=== PATIENT | female | born 1950 | race Caucasian/White ===

== ENCOUNTER → 2016-08-17 | Outpatient (CLI) | payer MEDICARE, OTHER ==
[~2016-08-17] MED LIST: AMLOPIDINE PO; AMOXICILLIN/CLA1 TA1 PO; ASPIRIN 32325 MG/TAB PO; ASPIRIN E.C. 8181 MG PO; CALTRATE-600 W600 MG PO; COLACE 100100 MG/CAP PO; COREG 6.256.25 MG/TA PO; COREG CR10 MG PO; COREG CR20 M1 PO; EPA FISH OIL1000 MG PO; EPO; FOLIC ACID 11 MG/TA1 PO; FOLIC ACID0.4 MG PO; HCTZ 25MG25 MG PO; HYDRALAZINE HCL25 MG PO; IMDUR 60MG60 MG/TAB PO; INSULIN HUMA100 U/ML SC; INSULIN NOVO100 U/ML SC; IPRATROPIUM BROM3 M1 IH; LANTUS100 U/ML SQ; LEVAQUIN 5500 MG/TA1 PO; LIDODERM PATCH TP; Lantus Insulin SC; MICARDIS80 MG PO; MULTIPLE VITAMI1 TA2 PO; NEPHROCAP PO; NEURONTIN300 MG PO; NITROSTAT0.4 MG/TAB SL; NORCO 325 MG-51 TAB PO; NORCO 325 MG-7.1 TAB PO; NORVASC 10MG10 MG PO; NORVASC5 MG PO; NOVOLIN 70/30 IN3 ML SC; NOVOLOG FLEX100 U/ML SC; NOVOLOG SQ; NOVOLOG100 U/ML SC; PERCOCET 325 MG1 TA2 PO; PHOSLO667 M1 PO; PHOSLO667 MG PO; PLAVIX 75MG TAB75 MG PO; PRAVACHOL 40MG40 MG PO; PRAVACHOL40 MG PO; PYRIDIUM 100MG100 MG PO; REGLAN 5MG5 MG PO; RENA-VITE1 TAB PO; RENO CAPS1 SGL PO; RENVELA800 MG PO; SENSIPAR30 MG PO; SODIUM BICARB PO; SODIUM BICARBO650 MG PO; SYNTHROID0.112 MG/T PO; SYNTHROID0.125 MG PO; SYNTHROID0.125 MG/T PO; TEKTURNA PO; TRENTAL 400MG400 MG PO; TRENTAL PO; TYLENOL 325MG325 MG PO; ULTRAM50 MG PO; VIT C PO; VIT E PO; ZANTAC 150MG T150 MG PO; ZANTAC 300300 MG PO; ZANTAC 7575 MG PO; ZEMPLAR1 MCG PO; ZETIA10 MG PO; ZOCOR40 MG PO; [UNRECOGNIZED DRUG - OTHER]; [UNRECOGNIZED DRUG - OTHER] PO
== END ==
LOC: COL.RAD 11:00
DX: I70.291 Other atherosclerosis of native arteries of extremities, right leg (principal); I77.1 Stricture of artery; I73.89 Other specified peripheral vascular diseases; Z89.512 Acquired absence of left leg below knee; Z89.511 Acquired absence of right leg below knee; Z90.5 Acquired absence of kidney
CPT/HCPCS: Q9967

== ENCOUNTER 2016-09-17 09:54 | Inpatient (IN) | payer MEDICARE, OTHER ==
[~2016-09-17] VITALS: Ht 160 cm; Wt 84.7 kg
[~2016-09-17 09:54] MED LIST changes: -NORCO 325 MG-7.1 TAB PO; -ZANTAC 7575 MG PO
[2016-09-17 14:05] LABS: ADD PATHOLOGY DIFF REVIEW NO
[2016-09-17 14:10] LABS: MEAN CELL VOLUME 97 fl (80.0-100.0); MEAN CORPUSCULAR HGB CONC 32 g/dl (33.0-37.0); MEAN PLATELET VOLUME 11.1 fl (7.4-10.4); PLATELET COUNT 173 K/mm3 (130-400); RED BLOOD COUNT 3.18 M/mm3 (4.10-5.30); REDCELL DISTRIBUTION WIDTH-CV 12.8 % (11.5-14.5); WHITE BLOOD COUNT 5.9 K/mm3 (4.8-10.8)
[2016-09-17 14:34] LABS: ADJUSTED CALCIUM 9.4 mg/dL (8.4-10.2); ALANINE AMINOTRANSFERASE 19 U/L (9-52); ALBUMIN 3.8 gm/dL (3.5-5.0); ALKALINE PHOSPHATASE 68 U/L (50-136); ANION GAP 14 mmol/L (7-16); BILIRUBIN,TOTAL 0.6 mg/dL (0.0-1.0); BLOOD UREA NITROGEN 24 mg/dL (7-17); CALCIUM 9.2 mg/dL (8.4-10.2); CARBON DIOXIDE 27 mmol/L (22-30); CHLORIDE 101 mmol/L (98-107); CREATINE KINASE 26 U/L (30-135); GLUCOSE 167 mg/dL (74-106); SODIUM 141 mmol/L (137-145)
[2016-09-17 14:44] LABS: CREATININE, serum 4.85 mg/dL (0.52-1.25)
[2016-09-17 14:46] LABS: B-TYPE NATRIURETIC PEPTIDE 8370 pg/mL (0-125)
[2016-09-17 14:50] LABS: TROPONIN-I < 0.012 ng/mL (0.000-0.034)
[2016-09-17 14:55] LABS: HEMATOCRIT 30.7 % (37.0-47.0); HEMOGLOBIN 9.9 g/dl (12.5-16.0); MEAN CORPUSCULAR HEMOGLOBIN 31 pg (27.0-31.0)
[2016-09-17 15:29] VITALS: BP 138/75; PULSE 70; TEMP 98.1
[2016-09-17 16:27] LABS: BAND 7 % (0-10); EOSINOPHIL 5 % (0-4); METAMYELOCYTE 1 % (0-0)
[2016-09-17 16:31] LABS: MYELOCYTE 0 % (0-0); NEUTROPHILS 62 % (42.0-75.2); TOTAL CELLS COUNTED 100
[2016-09-17 16:32] LABS: PLATELET ESTIMATE NORMAL (NORMAL)
[2016-09-17 19:12] VITALS: BP 145/60; PULSE 77; TEMP 98
[2016-09-17 23:09] VITALS: BP 132/44; PULSE 77; TEMP 98.5
[2016-09-18 05:07] VITALS: BP 132/48; PULSE 64; TEMP 98.3
[2016-09-18 11:51] VITALS: BP 125/49; PULSE 70; TEMP 98.4
== END 2016-09-18 16:03 | disposition home or self-care (01) | DRG 311 ==
LOC: MEDICAL 09:54
PROVIDERS: Internal Medicine Nephrology
PROC: 5A1D00Z (ICD-10-PCS; principal; 2016-09-18)
DX: I20.9 Angina pectoris, unspecified (principal); N18.6 End stage renal disease; I12.0 Hypertensive chronic kidney disease with stage 5 chronic kidney disease or end stage renal disease; E11.22 Type 2 diabetes mellitus with diabetic chronic kidney disease; E03.9 Hypothyroidism, unspecified; D63.1 Anemia in chronic kidney disease; I95.9 Hypotension, unspecified; Z99.2 Dependence on renal dialysis; Z79.4 Long term (current) use of insulin
CPT/HCPCS: J0882; J1644; J1815

== ENCOUNTER 2017-01-23 11:21 | Emergency (ER) | payer MEDICARE, OTHER ==
[~2017-01-23] VITALS: Ht 160 cm; Wt 77.3 kg
[2017-01-23 11:25] VITALS: TEMP 98.7
[2017-01-23] MEDS ORDERED: AMOXICILLIN/CLA1 TA1 PO (11:45)
[2017-01-23] MEDS ORDERED: NORCO 325 MG-7.1 TAB PO (11:46)
[2017-01-23] MEDS ORDERED: ZANTAC 7575 MG PO (11:50)
[2017-01-23 12:57] LABS: BASO % 0.4 % (0.0-2.0); EOS # 0.3 (0.0-0.7); EOS % 2.7 % (0-4.0); GRAN # 7.5 (1.4-6.5); GRAN % 76.7 % (42.2-75.2); LYMPH # 1.2 (1.2-3.4); LYMPH % 12.3 % (20.0-51.0); MEAN CELL VOLUME 100 fl (80.0-100.0); MEAN CORPUSCULAR HGB CONC 31 g/dl (33.0-37.0); MEAN PLATELET VOLUME 10.9 fl (7.4-10.4); MONO # 0.7 (0.1-0.6); MONO % 7.4 % (1.7-9.3); PLATELET COUNT 205 K/mm3 (130-400); RED BLOOD COUNT 3.33 M/mm3 (4.10-5.30); REDCELL DISTRIBUTION WIDTH-CV 13.3 % (11.5-14.5); WHITE BLOOD COUNT 9.8 K/mm3 (4.8-10.8)
[2017-01-23 13:08] LABS: HEMATOCRIT 33.2 % (37.0-47.0); HEMOGLOBIN 10.4 g/dl (12.5-16.0); MEAN CORPUSCULAR HEMOGLOBIN 31 pg (27.0-31.0)
[2017-01-23 13:09] LABS: ALBUMIN 3.6 gm/dL (3.5-5.0); BILIRUBIN,TOTAL 0.7 mg/dL (0.0-1.0); C-REACTIVE PROTEIN 8.1 mg/dL (0.0-0.9); CALCIUM 8.7 mg/dL (8.4-10.2); POTASSIUM 4.3 mmol/L (3.4-5.0); TOTAL PROTEIN 7.2 gm/dL (6.4-8.2)
[2017-01-23 13:11] LABS: CREATININE, serum 7.03 mg/dL (0.52-1.25)
[2017-01-23 13:30] VITALS: BP 120/51; PULSE 51
== END 2017-01-23 13:30 | disposition home or self-care (01) ==
LOC: COL.ER 11:21
PROVIDERS: Family Medicine
DX: I73.1 Thromboangiitis obliterans [Buerger's disease] (principal); N18.6 End stage renal disease; Z99.2 Dependence on renal dialysis; Z79.82 Long term (current) use of aspirin; Z79.02 Long term (current) use of antithrombotics/antiplatelets

== ENCOUNTER 2017-03-08 09:30 | Day surgery (SDC) | payer MEDICARE, OTHER ==
[~2017-03-08] VITALS: Ht 160 cm; Wt 81.8 kg
[~2017-03-08 09:30] MED LIST changes: +NORCO 325 MG-7.1 TAB PO; +ZANTAC 7575 MG PO
[2017-03-08 10:21] VITALS: BP 144/49; PULSE 67; TEMP 97.5
[2017-03-08 10:36] LABS: CALCIUM 9.1 mg/dL (8.4-10.2); POTASSIUM 4.6 mmol/L (3.4-5.0)
[2017-03-08 10:40] LABS: CREATININE, serum 6.21 mg/dL (0.52-1.25)
[2017-03-08] MEDS ORDERED: COREG 6.256.25 MG/TA PO (10:44)
[2017-03-08] MEDS ORDERED: IMDUR 30MG30 MG/TAB PO (10:45)
[2017-03-08] MEDS ORDERED: TRENTAL 400MG400 MG PO (10:45)
[2017-03-08] MEDS ORDERED: NEURONTIN300 MG/CAP PO (10:46)
[2017-03-08] MEDS ORDERED: TIROSINT125 MC1 PO (10:47)
[2017-03-08] MEDS ORDERED: PLAVIX 75MG TAB75 MG PO (10:48)
[2017-03-08] MEDS ORDERED: ZANTAC 150MG T150 MG PO (10:48)
[2017-03-08] MEDS ORDERED: PRAVACHOL 40MG40 MG PO (10:49)
[2017-03-08] MEDS ORDERED: FOLIC ACID 11 MG/TA1 PO (10:49)
[2017-03-08] MEDS ORDERED: NEPHROCAP PO (10:50)
[2017-03-08] MEDS ORDERED: NOVOLOG 100U100 U/M1 SQ (10:51)
[2017-03-08] MEDS ORDERED: LANTUS100 U/ML SQ (10:52)
[2017-03-08] MEDS ORDERED: ASPIRIN 32325 MG/TAB PO (10:52)
[2017-03-08 13:51] VITALS: BP 112/35; PULSE 75
[2017-03-08 14:06] VITALS: BP 92/62; PULSE 69
[2017-03-08] MEDS ORDERED: PHENERGAN 25 TA25 MG PO ×2 (14:13→14:19)
[2017-03-08] MEDS ORDERED: NORCO 325 MG-7.1 TAB PO (14:18)
[2017-03-08 14:21] VITALS: BP 101/44; PULSE 58
== END 2017-03-08 14:43 | disposition home or self-care (01) ==
LOC: SDCO 09:30
PROVIDERS: Registered Nurse
DX: E11.52 Type 2 diabetes mellitus with diabetic peripheral angiopathy with gangrene (principal); I96 Gangrene, not elsewhere classified; D64.9 Anemia, unspecified; E11.22 Type 2 diabetes mellitus with diabetic chronic kidney disease; I25.2 Old myocardial infarction; I12.0 Hypertensive chronic kidney disease with stage 5 chronic kidney disease or end stage renal disease; N18.6 End stage renal disease; K21.9 Gastro-esophageal reflux disease without esophagitis; M19.90 Unspecified osteoarthritis, unspecified site; E03.9 Hypothyroidism, unspecified; Z79.4 Long term (current) use of insulin; Z79.01 Long term (current) use of anticoagulants; Z90.5 Acquired absence of kidney; Z89.511 Acquired absence of right leg below knee; Z99.2 Dependence on renal dialysis; Z89.512 Acquired absence of left leg below knee; Z87.891 Personal history of nicotine dependence; Z80.0 Family history of malignant neoplasm of digestive organs; Z83.3 Family history of diabetes mellitus; Z82.49 Family history of ischemic heart disease and other diseases of the circulatory system
CPT/HCPCS: J0670; J0690; J2250; J2405; J2704; J2765; J7030

== ENCOUNTER 2017-04-04 15:23 | Inpatient (IN) | payer MEDICARE, OTHER ==
[~2017-04-04] VITALS: Ht 160 cm; Wt 75.8 kg
[~2017-04-04 15:23] MED LIST changes: +IMDUR 30MG30 MG/TAB PO; +NEURONTIN300 MG/CAP PO; +NOVOLOG 100U100 U/M1 SQ; +PHENERGAN 25 TA25 MG PO; +TIROSINT125 MC1 PO
[2017-04-04 15:47] VITALS: BP 131/56; PULSE 75; TEMP 9734
[2017-04-04 16:28] LABS: BASO % 0.3 % (0.0-2.0); EOS # 0.1 (0.0-0.7); EOS % 0.5 % (0-4.0); GRAN # 12.7 (1.4-6.5); GRAN % 84.2 % (42.2-75.2); LYMPH # 1.2 (1.2-3.4); MEAN CELL VOLUME 97 fl (80.0-100.0); MEAN CORPUSCULAR HGB CONC 32 g/dl (33.0-37.0); MEAN PLATELET VOLUME 10.3 fl (7.4-10.4); MONO # 0.9 (0.1-0.6); PLATELET COUNT 303 K/mm3 (130-400); RED BLOOD COUNT 3.15 M/mm3 (4.10-5.30); WHITE BLOOD COUNT 15.1 K/mm3 (4.8-10.8)
[2017-04-04 16:38] LABS: HEMATOCRIT 30.5 % (37.0-47.0); HEMOGLOBIN 9.7 g/dl (12.5-16.0); MEAN CORPUSCULAR HEMOGLOBIN 31 pg (27.0-31.0)
[2017-04-04 16:41] LABS: ADJUSTED CALCIUM 9.6 mg/dL (8.4-10.2); ALBUMIN 3.6 gm/dL (3.5-5.0); BILIRUBIN,TOTAL 0.6 mg/dL (0.0-1.0); CALCIUM 9.3 mg/dL (8.4-10.2); POTASSIUM 4.4 mmol/L (3.4-5.0); TOTAL PROTEIN 7.2 gm/dL (6.4-8.2)
[2017-04-04 16:47] LABS: CREATININE, serum 4.86 mg/dL (0.52-1.25)
[2017-04-04 20:30] VITALS: BP 118/70; PULSE 74; TEMP 98.6
[2017-04-05] VITALS (7 sets, daily range): BP systolic 108–148; BP diastolic 30–50; PULSE 61–70; TEMP 97.4–99.4
[2017-04-05 06:59] LABS: CALCIUM 9.6 mg/dL (8.4-10.2); POTASSIUM 3.9 mmol/L (3.4-5.0)
[2017-04-05 07:00] LABS: BASO # 0.1 (0.0-0.2); BASO % 0.4 % (0.0-2.0); EOS # 0.2 (0.0-0.7); GRAN # 12.2 (1.4-6.5); GRAN % 76.4 % (42.2-75.2); LYMPH # 2.1 (1.2-3.4); LYMPH % 13.1 % (20.0-51.0); MEAN CELL VOLUME 99 fl (80.0-100.0); MEAN CORPUSCULAR HGB CONC 31 g/dl (33.0-37.0); MEAN PLATELET VOLUME 10.2 fl (7.4-10.4); MONO # 1.3 (0.1-0.6); MONO % 7.9 % (1.7-9.3); PLATELET COUNT 360 K/mm3 (130-400); RED BLOOD COUNT 3.29 M/mm3 (4.10-5.30)
[2017-04-05 07:01] LABS: HEMATOCRIT 32.4 % (37.0-47.0); MEAN CORPUSCULAR HEMOGLOBIN 30 pg (27.0-31.0)
[2017-04-05 07:02] LABS: CREATININE, serum 5.85 mg/dL (0.52-1.25)
[2017-04-06 02:00] VITALS: BP 116/46; PULSE 59; TEMP 98
[2017-04-06 07:00] VITALS: BP 153/50; PULSE 63; TEMP 98.3
[2017-04-06 07:07] LABS: MEAN CELL VOLUME 98 fl (80.0-100.0); MEAN CORPUSCULAR HGB CONC 32 g/dl (33.0-37.0); MEAN PLATELET VOLUME 10.3 fl (7.4-10.4); PLATELET COUNT 362 K/mm3 (130-400); RED BLOOD COUNT 3.19 M/mm3 (4.10-5.30); WHITE BLOOD COUNT 14.1 K/mm3 (4.8-10.8)
[2017-04-06 07:08] LABS: ADD PATHOLOGY DIFF REVIEW NO; HEMATOCRIT 31.3 % (37.0-47.0); HEMOGLOBIN 9.9 g/dl (12.5-16.0); MEAN CORPUSCULAR HEMOGLOBIN 31 pg (27.0-31.0)
[2017-04-06 07:15] LABS: CALCIUM 9.5 mg/dL (8.4-10.2); POTASSIUM 4.4 mmol/L (3.4-5.0)
[2017-04-06 07:17] LABS: CREATININE, serum 7.68 mg/dL (0.52-1.25)
[2017-04-06 07:28] VITALS: BP 148/50; PULSE 63; TEMP 98.1
[2017-04-06 08:10] LABS: BAND 11 % (0-10); EOSINOPHIL 2 % (0-4); LYMPHOCYTE 12 % (20.0-51.0); NEUTROPHILS 71 % (42.0-75.2); PLATELET ESTIMATE NORMAL (NORMAL); SPHEROCYTE 1+; TOTAL CELLS COUNTED 100
[2017-04-06 17:37] VITALS: BP 131/32; PULSE 73; TEMP 98.3
[2017-04-06 22:04] VITALS: BP 147/34; PULSE 73; TEMP 98.7
[2017-04-07] VITALS (7 sets, daily range): BP systolic 109–155; BP diastolic 31–59; PULSE 60–75; TEMP 97.9–98.8
[2017-04-07 06:22] LABS: MEAN CELL VOLUME 99 fl (80.0-100.0); MEAN CORPUSCULAR HGB CONC 31 g/dl (33.0-37.0); MEAN PLATELET VOLUME 9.7 fl (7.4-10.4); PLATELET COUNT 360 K/mm3 (130-400); RED BLOOD COUNT 3.26 M/mm3 (4.10-5.30); WHITE BLOOD COUNT 13.1 K/mm3 (4.8-10.8)
[2017-04-07 06:26] LABS: ADD PATHOLOGY DIFF REVIEW NO; HEMATOCRIT 32.2 % (37.0-47.0); HEMOGLOBIN 9.9 g/dl (12.5-16.0); MEAN CORPUSCULAR HEMOGLOBIN 30 pg (27.0-31.0)
[2017-04-07 06:37] LABS: CALCIUM 9.4 mg/dL (8.4-10.2); POTASSIUM 4.4 mmol/L (3.4-5.0)
[2017-04-07 06:52] LABS: BAND 9 % (0-10); BASOPHIL 2 % (0-2); LYMPHOCYTE 10 % (20.0-51.0); NEUTROPHILS 78 % (42.0-75.2); PLATELET ESTIMATE NORMAL (NORMAL); TOTAL CELLS COUNTED 100
[2017-04-07 07:06] LABS: CREATININE, serum 4.96 mg/dL (0.52-1.25)
[2017-04-08 01:39] VITALS: BP 104/45; PULSE 65; TEMP 98.2
[2017-04-08 06:37] VITALS: BP 130/49; PULSE 65; TEMP 98
[2017-04-08 06:37] LABS: HEMATOCRIT 32.4 % (37.0-47.0); MEAN CELL VOLUME 99 fl (80.0-100.0); MEAN CORPUSCULAR HEMOGLOBIN 30 pg (27.0-31.0); MEAN CORPUSCULAR HGB CONC 31 g/dl (33.0-37.0); MEAN PLATELET VOLUME 9.6 fl (7.4-10.4); PLATELET COUNT 403 K/mm3 (130-400); RED BLOOD COUNT 3.28 M/mm3 (4.10-5.30); WHITE BLOOD COUNT 12.8 K/mm3 (4.8-10.8)
[2017-04-08 06:38] LABS: ADD PATHOLOGY DIFF REVIEW NO
[2017-04-08 06:46] LABS: CALCIUM 9.7 mg/dL (8.4-10.2)
[2017-04-08 06:48] LABS: CREATININE, serum 6.56 mg/dL (0.52-1.25)
[2017-04-08 07:02] LABS: BAND 11 % (0-10); EOSINOPHIL 1 % (0-4); LYMPHOCYTE 13 % (20.0-51.0); NEUTROPHILS 71 % (42.0-75.2); TOTAL CELLS COUNTED 100
[2017-04-08 07:03] LABS: PLATELET ESTIMATE INCREASED (NORMAL)
[2017-04-08 14:04] VITALS: BP 142/37; PULSE 79; TEMP 98.1
[2017-04-08 18:02] VITALS: BP 154/40; PULSE 72; TEMP 98
[2017-04-08 21:46] VITALS: BP 151/42; PULSE 69; TEMP 98.5
[2017-04-09 02:10] VITALS: BP 160/58; PULSE 69; TEMP 98.7
[2017-04-09 05:23] VITALS: BP 149/43; BP 151/42; PULSE 65; PULSE 69; TEMP 98.5
[2017-04-09 06:47] LABS: BASO % 0.4 % (0.0-2.0); EOS # 0.2 (0.0-0.7); EOS % 1.4 % (0-4.0); GRAN # 8.4 (1.4-6.5); GRAN % 74.4 % (42.2-75.2); LYMPH # 1.6 (1.2-3.4); LYMPH % 13.9 % (20.0-51.0); MEAN CELL VOLUME 100 fl (80.0-100.0); MEAN CORPUSCULAR HGB CONC 30 g/dl (33.0-37.0); MEAN PLATELET VOLUME 9.9 fl (7.4-10.4); MONO % 8.7 % (1.7-9.3); PLATELET COUNT 360 K/mm3 (130-400); RED BLOOD COUNT 2.98 M/mm3 (4.10-5.30); WHITE BLOOD COUNT 11.2 K/mm3 (4.8-10.8)
[2017-04-09 06:48] LABS: HEMATOCRIT 29.7 % (37.0-47.0); MEAN CORPUSCULAR HEMOGLOBIN 30 pg (27.0-31.0)
[2017-04-09 07:00] LABS: POTASSIUM 4.5 mmol/L (3.4-5.0)
[2017-04-09 07:10] LABS: CREATININE, serum 4.29 mg/dL (0.52-1.25)
[2017-04-09 09:02] VITALS: BP 153/47; PULSE 63; TEMP 98.4
[2017-04-09 13:49] VITALS: BP 137/47; PULSE 70; TEMP 97.9
[2017-04-09 17:38] VITALS: BP 155/40; PULSE 71; TEMP 98.4
[2017-04-09 21:47] VITALS: BP 138/52; PULSE 73; TEMP 99
[2017-04-10 01:28] VITALS: BP 119/41; PULSE 64; TEMP 98.4
[2017-04-10 05:11] VITALS: BP 140/38; PULSE 65; TEMP 98.5
[2017-04-10 06:46] LABS: BASO # 0.1 (0.0-0.2); BASO % 0.4 % (0.0-2.0); EOS # 0.1 (0.0-0.7); EOS % 1.2 % (0-4.0); GRAN # 8.4 (1.4-6.5); GRAN % 74.9 % (42.2-75.2); LYMPH # 1.6 (1.2-3.4); LYMPH % 14.5 % (20.0-51.0); MEAN CELL VOLUME 99 fl (80.0-100.0); MEAN CORPUSCULAR HGB CONC 31 g/dl (33.0-37.0); MEAN PLATELET VOLUME 10.1 fl (7.4-10.4); MONO # 0.9 (0.1-0.6); MONO % 7.7 % (1.7-9.3); PLATELET COUNT 380 K/mm3 (130-400); RED BLOOD COUNT 3.06 M/mm3 (4.10-5.30); WHITE BLOOD COUNT 11.2 K/mm3 (4.8-10.8)
[2017-04-10 06:47] LABS: HEMATOCRIT 30.2 % (37.0-47.0); HEMOGLOBIN 9.3 g/dl (12.5-16.0); MEAN CORPUSCULAR HEMOGLOBIN 30 pg (27.0-31.0)
[2017-04-10 07:03] LABS: CALCIUM 9.3 mg/dL (8.4-10.2); POTASSIUM 4.9 mmol/L (3.4-5.0)
[2017-04-10 07:15] LABS: ERYTHROCYTE SEDIMENTATION RATE > 140 mm/hr (0-30)
[2017-04-10 07:27] LABS: CREATININE, serum 5.89 mg/dL (0.52-1.25)
[2017-04-10 09:00] VITALS: BP 138/45; PULSE 60; TEMP 97.9
[2017-04-10 12:52] VITALS: BP 146/42; PULSE 69; TEMP 98.2
[2017-04-10 16:39] VITALS: BP 136/39; PULSE 69; TEMP 98.3
[2017-04-10 20:00] VITALS: BP 144/43; PULSE 65; TEMP 97.9
[2017-04-11 02:22] VITALS: BP 144/40; PULSE 66; TEMP 98.9
[2017-04-11 05:54] VITALS: BP 141/44; PULSE 70; TEMP 97.7
[2017-04-11 10:37] VITALS: BP 153/49; PULSE 69; TEMP 98
[2017-04-11 11:23] LABS: BASO # 0.1 (0.0-0.2); BASO % 0.6 % (0.0-2.0); EOS # 0.2 (0.0-0.7); EOS % 1.3 % (0-4.0); GRAN # 8.7 (1.4-6.5); LYMPH # 1.4 (1.2-3.4); LYMPH % 12.3 % (20.0-51.0); MEAN CELL VOLUME 98 fl (80.0-100.0); MEAN CORPUSCULAR HGB CONC 31 g/dl (33.0-37.0); MEAN PLATELET VOLUME 9.9 fl (7.4-10.4); MONO # 0.9 (0.1-0.6); MONO % 7.6 % (1.7-9.3); PLATELET COUNT 392 K/mm3 (130-400); RED BLOOD COUNT 3.16 M/mm3 (4.10-5.30); WHITE BLOOD COUNT 11.3 K/mm3 (4.8-10.8)
[2017-04-11 11:24] LABS: HEMATOCRIT 31.1 % (37.0-47.0); HEMOGLOBIN 9.5 g/dl (12.5-16.0); MEAN CORPUSCULAR HEMOGLOBIN 30 pg (27.0-31.0)
[2017-04-11 11:50] LABS: ALBUMIN 3.5 gm/dL (3.5-5.0); PHOSPHOROUS 4.6 mg/dL (2.5-4.5); POTASSIUM 5.3 mmol/L (3.4-5.0)
[2017-04-11 12:01] LABS: CREATININE, serum 7.64 mg/dL (0.52-1.25)
[2017-04-11 18:27] VITALS: BP 129/48; PULSE 74; TEMP 97.4
[2017-04-11 21:06] VITALS: BP 147/64; PULSE 71; TEMP 98.6
[2017-04-12 01:57] VITALS: BP 148/57; PULSE 70; TEMP 98.4
[2017-04-12 06:14] VITALS: BP 152/56; PULSE 72; TEMP 98.4
[2017-04-12 09:26] VITALS: BP 131/44; PULSE 80; TEMP 98.4
[2017-04-12 14:01] VITALS: BP 112/44; PULSE 75; TEMP 98.2
[2017-04-12 17:35] VITALS: BP 147/37; PULSE 71; TEMP 98
[2017-04-12 22:00] VITALS: BP 136/51; PULSE 76; TEMP 98.1
[2017-04-13 06:21] VITALS: BP 144/52; PULSE 92; TEMP 98.8
[2017-04-13 09:27] VITALS: BP 120/40; PULSE 92; TEMP 98.2
[2017-04-13 10:43] LABS: HEMATOCRIT 29.5 % (37.0-47.0); HEMOGLOBIN 9.3 g/dl (12.5-16.0); MEAN CELL VOLUME 98 fl (80.0-100.0); MEAN CORPUSCULAR HEMOGLOBIN 31 pg (27.0-31.0); MEAN CORPUSCULAR HGB CONC 32 g/dl (33.0-37.0); MEAN PLATELET VOLUME 10.1 fl (7.4-10.4); PLATELET COUNT 366 K/mm3 (130-400); RED BLOOD COUNT 3.02 M/mm3 (4.10-5.30); WHITE BLOOD COUNT 10.2 K/mm3 (4.8-10.8)
[2017-04-13 10:54] LABS: ALBUMIN 3.3 gm/dL (3.5-5.0); CALCIUM 8.6 mg/dL (8.4-10.2); PHOSPHOROUS 4.1 mg/dL (2.5-4.5); POTASSIUM 4.6 mmol/L (3.4-5.0)
[2017-04-13 10:56] LABS: CREATININE, serum 6.89 mg/dL (0.52-1.25)
[2017-04-13] MEDS ORDERED: AMOXICILLIN/CLA1 TA1 PO (15:01)
== END 2017-04-13 15:15 | disposition home or self-care (01) | DRG 602 ==
LOC: SURG 15:23
PROVIDERS: Internal Medicine; Internal Medicine Nephrology
PROC: 5A1D70Z Performance of Urinary Filtration, Intermittent, Less than 6 Hours Per Day (ICD-10-PCS; principal; 2017-04-04)
DX: L03.114 Cellulitis of left upper limb (principal); N18.6 End stage renal disease; I12.0 Hypertensive chronic kidney disease with stage 5 chronic kidney disease or end stage renal disease; E87.1 Hypo-osmolality and hyponatremia; E11.22 Type 2 diabetes mellitus with diabetic chronic kidney disease; Z99.2 Dependence on renal dialysis; D63.1 Anemia in chronic kidney disease; E11.51 Type 2 diabetes mellitus with diabetic peripheral angiopathy without gangrene; E11.65 Type 2 diabetes mellitus with hyperglycemia; Z89.512 Acquired absence of left leg below knee; Z89.511 Acquired absence of right leg below knee; Z87.891 Personal history of nicotine dependence; Z79.4 Long term (current) use of insulin
CPT/HCPCS: J0881; J1650; J1815; J2405; J2916; J3370; J7050

== ENCOUNTER → 2017-08-26 | Outpatient (CLI) | payer MEDICARE, OTHER | LOC: ZCOL.LAB 16:56 | DX: B99.9 Unspecified infectious disease (principal) ==

== ENCOUNTER 2017-09-18 11:35 | Inpatient (IN) | payer MEDICARE, OTHER ==
[~2017-09-18] VITALS: Ht 129.5 cm; Wt 83.3 kg
[2017-09-18] MEDS ORDERED: NORCO 325 MG-51 TAB PO (13:40)
[2017-09-18] MEDS ORDERED: RENVELA800 MG PO (13:44)
[2017-09-18] MEDS ORDERED: SODIUM BICARBO650 MG PO (13:45)
[2017-09-18] MEDS ORDERED: ROCEPHIN 2GM VIAL21 IJ (14:08)
[2017-09-18 14:25] VITALS: BP 123/39; PULSE 73; TEMP 97.9
[2017-09-18 20:28] VITALS: BP 107/47; PULSE 53; TEMP 98.6
[2017-09-18 23:10] VITALS: BP 122/47; PULSE 76; TEMP 98.6
[2017-09-18 23:25] VITALS: BP 135/37; PULSE 76; TEMP 98.4
[2017-09-18 23:45] VITALS: BP 139/45; PULSE 77; TEMP 98.6
[2017-09-19] VITALS (9 sets, daily range): BP systolic 124–155; BP diastolic 35–65; PULSE 67–88; TEMP 98.1–99.4
[2017-09-19 06:37] LABS: BASO # 0.1 (0.0-0.2); BASO % 0.9 % (0.0-2.0); EOS # 0.2 (0.0-0.7); EOS % 3.3 % (0-4.0); GRAN # 4.4 (1.4-6.5); GRAN % 66.7 % (42.2-75.2); LYMPH # 1.3 (1.2-3.4); LYMPH % 19.2 % (20.0-51.0); MEAN CELL VOLUME 100 fl (80.0-100.0); MEAN CORPUSCULAR HGB CONC 31 g/dl (33.0-37.0); MEAN PLATELET VOLUME 11.3 fl (7.4-10.4); MONO # 0.6 (0.1-0.6); MONO % 9.4 % (1.7-9.3); PLATELET COUNT 202 K/mm3 (130-400); RED BLOOD COUNT 3.07 M/mm3 (4.10-5.30); REDCELL DISTRIBUTION WIDTH-CV 17.2 % (11.5-14.5)
[2017-09-19 06:39] LABS: HEMATOCRIT 30.6 % (37.0-47.0); HEMOGLOBIN 9.4 g/dl (12.5-16.0); MEAN CORPUSCULAR HEMOGLOBIN 31 pg (27.0-31.0)
[2017-09-20 01:26] VITALS: BP 130/44; PULSE 76; TEMP 98.1
[2017-09-20 04:39] VITALS: BP 129/50; PULSE 70; PULSE 73; TEMP 100.4; TEMP 99.3
[2017-09-20 06:37] LABS: BASO # 0.1 (0.0-0.2); BASO % 0.9 % (0.0-2.0); EOS # 0.2 (0.0-0.7); EOS % 3.3 % (0-4.0); GRAN # 4.6 (1.4-6.5); GRAN % 69.1 % (42.2-75.2); MEAN CELL VOLUME 97 fl (80.0-100.0); MEAN CORPUSCULAR HGB CONC 32 g/dl (33.0-37.0); MEAN PLATELET VOLUME 10.9 fl (7.4-10.4); MONO # 0.8 (0.1-0.6); MONO % 11.4 % (1.7-9.3); PLATELET COUNT 216 K/mm3 (130-400); RED BLOOD COUNT 3.54 M/mm3 (4.10-5.30); REDCELL DISTRIBUTION WIDTH-CV 17.2 % (11.5-14.5)
[2017-09-20 06:53] LABS: INR 1.1 (0.8-3.0); PROTHROMBIN TIME 12.9 SECONDS (9.7-12.8)
[2017-09-20 07:02] LABS: HEMATOCRIT 34.3 % (37.0-47.0); HEMOGLOBIN 10.8 g/dl (12.5-16.0); MEAN CORPUSCULAR HEMOGLOBIN 31 pg (27.0-31.0)
[2017-09-20 07:44] VITALS: BP 113/52; BP 128/54; PULSE 59; PULSE 73; TEMP 97.9; TEMP 98.4
[2017-09-20] MEDS ORDERED: NEURONTIN100 MG/CAP PO (09:51)
[2017-09-20] MEDS ORDERED: ZOFRAN 4MG T4 MG/TAB PO (10:37)
== END 2017-09-20 11:55 | disposition home or self-care (01) | DRG 947 ==
LOC: MEDICAL 11:35 → SURG 13:33
PROVIDERS: Internal Medicine; Internal Medicine Nephrology
PROC: 5A1D70Z Performance of Urinary Filtration, Intermittent, Less than 6 Hours Per Day (ICD-10-PCS; principal; 2017-09-19)
DX: R41.82 Altered mental status, unspecified (principal); N18.6 End stage renal disease; I12.0 Hypertensive chronic kidney disease with stage 5 chronic kidney disease or end stage renal disease; R27.8 Other lack of coordination; N18.9 Chronic kidney disease, unspecified; D63.1 Anemia in chronic kidney disease; R47.81 Slurred speech; T39.1X5A Adverse effect of 4-Aminophenol derivatives, initial encounter; T42.6X5A Adverse effect of other antiepileptic and sedative-hypnotic drugs, initial encounter; Z89.512 Acquired absence of left leg below knee; Z89.511 Acquired absence of right leg below knee; Z99.2 Dependence on renal dialysis
CPT/HCPCS: A9284; J0696; J0881; J1815; P9016

== ENCOUNTER 2018-04-20 11:30 | Outpatient (CLI) | payer MEDICARE, OTHER ==
[2018-04-20] VITALS (7 sets, daily range): BP systolic 110–135; BP diastolic 51–116; PULSE 86–108; TEMP 97.9
[~2018-04-20] VITALS: Ht 157.5 cm; Wt 81.1 kg
[~2018-04-20 11:30] MED LIST changes: +NEURONTIN100 MG/CAP PO; +ROCEPHIN 2GM VIAL21 IJ; +ZOFRAN 4MG T4 MG/TAB PO
[2018-04-20] MEDS ORDERED: DOXYCYCLINE 10100 MG PO (11:59)
== END 2018-04-20 19:00 | disposition home or self-care (01) ==
LOC: COL.CAR 11:30
DX: T82.858A Stenosis of other vascular prosthetic devices, implants and grafts, initial encounter (principal); N18.6 End stage renal disease; I25.10 Atherosclerotic heart disease of native coronary artery without angina pectoris; Z88.6 Allergy status to analgesic agent; Z88.1 Allergy status to other antibiotic agents; Z88.8 Allergy status to other drugs, medicaments and biological substances; Z79.02 Long term (current) use of antithrombotics/antiplatelets; Z79.82 Long term (current) use of aspirin; Z87.891 Personal history of nicotine dependence
CPT/HCPCS: J1644; J2250; J3010; Q9967